=== PATIENT | female | born 1990 | race American Indian/Alaskan Native ===

== ENCOUNTER 2020-06-14 12:03 | Emergency (ER) | payer SELFPAY ==
[2020-06-14 12:46] VITALS: BP 105/70
--- NOTE | 2020-06-14 13:23 | Emergency Department Report ---
ED Psych HPI - General Chief Complaint: Psych Stated Complaint: DEPRESSION/NEEDS CASE MANAGMENT Time Seen by Provider: 06/14/20 13:13 Source: patient Mode of arrival: Ambulatory Limitations: No Limitations - History of Present Illness Initial Comments: 29-year-old female possibly treated for depression at age 13 presents to the hospital with complaints of depression x1 month. She denies suicidal homicidal ideation. She also denies hallucinations. She denies physical complaints. On EMS intake form states that patient is suicidal which patient adamantly denies. Patient is under the understanding that she can stay here for 3 days due to psychiatric issues. - Related Data Allergies Allergy/AdvReac Type Severity Reaction Status Date / Time No Known Allergies Allergy Unverified 06/14/20 12:39 ED Review of Systems ROS: Stated complaint: DEPRESSION/NEEDS CASE MANAGMENT Other details as noted in HPI Comment: All other systems reviewed and negative ED Past Medical Hx - Past Medical History Additional medical history: DEPRESSION - Surgical History Additional Surgical History: C SECTION - Social History Smoking Status: Never Smoker Substance Use Type: None ED Physical Exam - General Limitations: No Limitations - Other Other exam information: General: No acute distress Head: Atraumatic Eyes: normal appearance ENT: Moist mucous membranes Neck: Normal appearance, no midline tenderness Chest: Clear to auscultation bilaterally CV: Regular rate and rhythm Abdomen: Soft, normal bowel sounds, nontender, nondistended, no rebound or guarding Back: Normal inspection Extremity: Normal inspection, full range of motion Neuro: Alert O x 3, no facial asymmetry, speech clear, no gross motor sensory deficit Psych: Appropriate behavior Skin: No rash ED Course Vital Signs 06/14/20 12:45 Temperature 98 F Pulse Rate 87 Respiratory 18 Rate Blood Pressure 105/70 [Left] O2 Sat by Pulse 100 Oximetry ED Medical Decision Making - Medical Decision Making Patient presents here with depression without suicidal ideation, homicidal i deation, or psychosis. When patient told she does not meet criteria for inpatient psychiatric treatment and will be discharged she is asking to stay for several hours because she does not have a ride. She then is also asking about what it takes to stay for 3 days in the hospital. Patient denies being homeless some unclear as to why she seems to be wanting to stay in the ER unnecessarily. She will be provided outpatient psychiatric resources Critical Care Time: No Critical care attestation.: If time is entered above; I have spent that time in minutes in the direct care of this critically ill patient, excluding procedure time. ED Disposition Clinical Impression: Depression Disposition: DC-01 TO HOME OR SELFCARE Is pt being admited?: No Does the pt Need Aspirin: No Condition: Stable Instructions: Depression (ED) Additional Instructions: Follow-up with the resources provided for outpatient treatment of your depression. Return if symptoms worsen as indicated by your discharge instructions Referrals: [facility] [Outside] - [place] Time of Disposition: 13:23
== END 2020-06-14 13:30 | disposition home or self-care (01) ==
LOC: ED 12:03
DX: F32.9 Major depressive disorder, single episode, unspecified (principal); Z79.899 Other long term (current) drug therapy; Z98.890 Other specified postprocedural states
CPT/HCPCS: 99283

== ENCOUNTER 2020-06-16 08:10 | Emergency (ER) | payer SELFPAY ==
[2020-06-16 08:20] VITALS: BP 99/77
== END 2020-06-16 09:30 | disposition left against medical advice (07) ==
LOC: ED 08:10
DX: F32.9 Major depressive disorder, single episode, unspecified (principal); Z53.21 Procedure and treatment not carried out due to patient leaving prior to being seen by health care provider